=== PATIENT | male | born 1980 | race Two or more races ===

== ENCOUNTER 2023-03-17 20:47 | Emergency (ER) | payer OTHER | END 2023-03-17 20:58 | disposition left against medical advice (07) | LOC: ER 20:47 | DX: R21 Rash and other nonspecific skin eruption (principal); Z53.21 Procedure and treatment not carried out due to patient leaving prior to being seen by health care provider ==

== ENCOUNTER 2023-03-18 09:07 | Emergency (ER) | payer MEDICAID, OTHER ==
[~2023-03-18] VITALS: Ht 172.7 cm; Wt 57.2 kg
[2023-03-18 09:40] VITALS: BP 136/86
== END 2023-03-18 20:00 | disposition left against medical advice (07) ==
LOC: ER 09:07
DX: L30.9 Dermatitis, unspecified (principal); R06.02 Shortness of breath